=== PATIENT | male | born 1995 | race Caucasian/White ===

== ENCOUNTER → 2021-10-24 | Outpatient (CLI) | payer OTHER ==
[2016-01-03 21:45] VITALS: BP 112/51
--- NOTE | 2021-10-24 13:16 | RAD ---
EXAM: XR LT WRIST 3VIEWS 10/24/2021 1:11 PM CLINICAL INDICATION: Wrist pain, fall 2 weeks ago COMPARISON: None TECHNIQUE: 3 views of the left wrist FINDINGS: No acute fracture. Alignment is normal. Joint spaces are maintained. Soft tissue is normal . IMPRESSION: Normal left wrist radiograph. Electronically signed by: Merari Carrion MD (10/24/2021 1:13 PM) [id number]
== END ==
LOC: RAD 12:40
PROVIDERS: ATTEND Registered Nurse
DX: M25.532 Pain in left wrist (principal)
CPT/HCPCS: 73110